=== PATIENT | female | born 1965 | race Hispanic/Latino ===

== ENCOUNTER 2017-09-08 16:23 | Emergency (ER) | payer BC, OTHER ==
[2017-09-08] MEDS ORDERED: KETOROLAC TROMETHAMINE 30MG/ML ONE (16:51)
[2017-09-08] MEDS ORDERED: CYCLOBENZAPRINE HCL 10 MG TABLET ONE (16:52)
== END 2017-09-08 20:10 | disposition home or self-care (01) ==
LOC: EDH 16:23
DX: M62.838 Other muscle spasm (principal); I10 Essential (primary) hypertension; Z87.891 Personal history of nicotine dependence
CPT/HCPCS: 96372; 99283; J1885

== ENCOUNTER 2017-09-09 14:13 | Emergency (ER) | payer BC ==
[2017-09-09] MEDS ORDERED: KETOROLAC TROMETHAMINE 60 MG/2 ML VIAL ONE (14:51)
[2017-09-09] MEDS ORDERED: DIAZEPAM 5 MG TABLET ONE (15:01)
== END 2017-09-09 16:14 | disposition home or self-care (01) ==
LOC: EDH 14:13
DX: G50.0 Trigeminal neuralgia (principal); M62.830 Muscle spasm of back; I10 Essential (primary) hypertension; Z98.890 Other specified postprocedural states
CPT/HCPCS: 96372; 99283; J1885

== ENCOUNTER → 2021-03-22 | Outpatient (CLI) | payer BC | END | disposition home or self-care (01) | LOC: RAH 11:11 | PROVIDERS: ATTEND Family Medicine | DX: J34.1 Cyst and mucocele of nose and nasal sinus (principal); R20.0 Anesthesia of skin | CPT/HCPCS: 70551 ==

== ENCOUNTER 2023-03-19 17:01 | Observation (INO) | payer OTHER ==
[~2023-03-19] VITALS: Ht 162.6 cm; Wt 99.3 kg
[2023-03-19 18:23] VITALS: BP 145/80; PULSE 87; RESP 20
[2023-03-19] MEDS ORDERED: CLOPIDOGREL 300MG TAB PO ONE (18:30)
[2023-03-19] MEDS ORDERED: LISI1TAB53 PO (18:34)
[2023-03-19] MEDS ORDERED: AMLO-257 PO (18:34)
[2023-03-19] MEDS ORDERED: OMEP-420 PO (18:34)
[2023-03-19] MEDS ORDERED: ASPI-1443 PO (18:34)
[2023-03-19 18:48] LABS: HEMATOCRIT 37.7 % (36-48); MEAN CORPUSCULAR HEMOGLOBIN 28.3 pg (27.0-33.0); MEAN CORPUSCULAR HGB CONC 33.4 g/dL (32.0-36.0); MEAN CORPUSCULAR VOLUME 84.5 fL (79-99); RED BLOOD CELL COUNT(AUTO) 4.46 MIL/uL (4.00-5.50); RED CELL DISTRIBUTION WIDTH 12.3 % (11.0-15.5); WHITE BLOOD COUNT (AUTO) 8.1 K/uL (4.8-10.8)
[2023-03-19 19:01] LABS: INR 0.93 (0.85-1.15); PROTHROMBIN TIME 10.6 SEC (9.6-11.6)
[2023-03-19 19:03] LABS: PARTIAL THROMBOPLASTIN TIME 24.8 SEC (26.3-35.5)
[2023-03-19 19:06] LABS: ALBUMIN 3.8 g/dL (3.5-5.0); BILIRUBIN,TOTAL 0.5 mg/dL (0.2-1.0); CREATININE 0.7 mg/dL (0.5-1.5); POTASSIUM 3.2 mmol/L (3.5-5.1); TOTAL PROTEIN, SERUM 7.7 g/dL (6.0-8.3)
[2023-03-19 20:00] VITALS: O2SAT 97
[2023-03-19] MEDS: FAMOTIDINE 20MG TAB PO SCH (20:30)
[2023-03-19] MEDS ORDERED: NITROGLYCERIN 1GM OINT 1 INCH/1GM TD ONE (20:50)
[2023-03-19 20:59] LABS: BASOPHILS # (AUTO) 0.07 K/uL (0.00-0.20); BASOPHILS % (AUTO) 0.8 % (0.0-5.0); EOSINOPHILS # (AUTO) 0.09 K/uL (0.00-0.70); HEMATOCRIT 37.1 % (36-48); IMMATURE GRANULOCYTE ABSOLUTE 0.04 K/uL (0-1); LYMPHOCYTES # (AUTO) 3.6 K/uL (1.0-4.8); LYMPHOCYTES % (AUTO) 40.6 % (21.0-51.0); MEAN CORPUSCULAR HEMOGLOBIN 28.3 pg (27.0-33.0); MEAN CORPUSCULAR HGB CONC 33.2 g/dL (32.0-36.0); MEAN CORPUSCULAR VOLUME 85.3 fL (79-99); MONOCYTES # (AUTO) 0.6 K/uL (0.1-1.0); MONOCYTES % (AUTO) 6.9 % (3.0-13.0); NEUTROPHILS # (AUTO) 4.5 K/uL (1.8-7.7); NEUTROPHILS % (AUTO) 50.3 % (40.0-77.0); PLATELET COUNT (AUTO) 232 K/uL (130-400); RED BLOOD CELL COUNT(AUTO) 4.35 MIL/uL (4.00-5.50); RED CELL DISTRIBUTION WIDTH 12.4 % (11.0-15.5); WHITE BLOOD COUNT (AUTO) 8.9 K/uL (4.8-10.8)
[2023-03-19] MEDS ORDERED: MORPHINE 4 MG SYG IM PRN (21:00)
[2023-03-19] MEDS ORDERED: AMLODIPINE 5 MG TAB PO SCH (21:00)
[2023-03-19] MEDS ORDERED: KCL 20 MEQ ERTAB PO PRN (21:00)
[2023-03-19] MEDS ORDERED: METOPROLOL TARTRATE 25 MG TAB PO ONE (21:00)
[2023-03-19] MEDS ORDERED: POTASSIUM CHLORIDE 20MEQ/100ML 100 ML IV PRN (21:00)
[2023-03-19] MEDS ORDERED: POTASSIUM CHLORIDE 10% ELIXIR 20 MEQ/15 ML UDCUP PO PRN (21:00)
[2023-03-19] MEDS ORDERED: MORPHINE 2 MG SYG IVP PRN (21:00)
[2023-03-19] MEDS ORDERED: MAGNESIUM 2GM PREMIX 50ML 50 ML IV PRN (21:00)
[2023-03-19] MEDS: NITROGLYCERIN 1GM OINT 1 INCH/1GM TD SCH (21:10)
[2023-03-19] MEDS ORDERED: LACTULOSE 20 GM/30 ML UDCUP PO PRN (21:30)
[2023-03-19] MEDS ORDERED: HEPARIN 5,000 UNIT VIAL SQ PRN (21:30)
[2023-03-19] MEDS: HEPARIN 25,000 UNITS/250ML D5W 250 ML IV SCH (22:00)
[2023-03-19 22:26] LABS: APPEARANCE,URINE CLEAR (CLEAR); BILIRUBIN,URINE NEGATIVE (NEGATIVE); COLOR,URINE LIGHT-YELLOW (YELLOW); GLUCOSE, URINE (UA) NEGATIVE (NEGATIVE); KETONES,URINE NEGATIVE (NEGATIVE); LEUKOCYTE ESTERASE ,URINE NEGATIVE Leu/uL (NEGATIVE); NITRATE,URINE NEGATIVE (NEGATIVE); PH,URINE 5.5 (5.0-8.0); PROTEIN,URINE NEGATIVE (NEGATIVE); UROBILINOGEN,URINE 0.2 mg/dL (0.2-1.0)
[2023-03-19 22:36] LABS: BACTERIA,URINE FEW /HPF (None Seen); MUCUS,URINE FEW LPF (None Seen); SQUAMOUS EPITHELIAL CELL,UR RARE /HPF (0-2)
[2023-03-19 23:54] VITALS: BP 110/70; PULSE 53; RESP 18
[2023-03-20] VITALS (15 sets, daily range): BP systolic 104–122; BP diastolic 51–73; PULSE 43–66; RESP 16–18; O2SAT 98
[2023-03-20] MEDS ORDERED: LACTATED RINGERS 1000ML 1,000 ML IV SCH (00:30)
[2023-03-20 03:47] LABS: BASOPHILS # (AUTO) 0.04 K/uL (0.00-0.20); BASOPHILS % (AUTO) 0.5 % (0.0-5.0); EOSINOPHILS # (AUTO) 0.14 K/uL (0.00-0.70); EOSINOPHILS % (AUTO) 1.7 % (0.0-8.0); HEMATOCRIT 35.1 % (36-48); IMMATURE GRANULOCYTE ABSOLUTE 0.02 K/uL (0-1); LYMPHOCYTES # (AUTO) 4.4 K/uL (1.0-4.8); LYMPHOCYTES % (AUTO) 54.8 % (21.0-51.0); MEAN CORPUSCULAR HEMOGLOBIN 28.1 pg (27.0-33.0); MEAN CORPUSCULAR HGB CONC 33.3 g/dL (32.0-36.0); MEAN CORPUSCULAR VOLUME 84.4 fL (79-99); MONOCYTES # (AUTO) 0.5 K/uL (0.1-1.0); MONOCYTES % (AUTO) 6.7 % (3.0-13.0); NEUTROPHILS # (AUTO) 2.9 K/uL (1.8-7.7); NEUTROPHILS % (AUTO) 36.1 % (40.0-77.0); PLATELET COUNT (AUTO) 221 K/uL (130-400); RED BLOOD CELL COUNT(AUTO) 4.16 MIL/uL (4.00-5.50); RED CELL DISTRIBUTION WIDTH 12.5 % (11.0-15.5); WHITE BLOOD COUNT (AUTO) 8.1 K/uL (4.8-10.8)
[2023-03-20 04:04] LABS: THYROID STIMULATING HORMONE 3.32 uIU/mL (0.36-3.74)
[2023-03-20] MEDS: NITROGLYCERIN 1GM OINT 1 INCH/1GM TD SCH ×2 (05:45→13:00)
[2023-03-20] MEDS: FAMOTIDINE 20MG TAB PO SCH (07:29)
[2023-03-20] MEDS ORDERED: CLOPIDOGREL 75MG TAB PO SCH (09:00)
[2023-03-20] MEDS ORDERED: LISINOPRIL 20 MG TABLET PO SCH (09:00)
[2023-03-20] MEDS ORDERED: ASPIRIN 81MG CHEW TAB PO SCH (09:00)
[2023-03-20] MEDS ORDERED: HYDROCHLOROTHIAZIDE 25 MG TABLET PO SCH (09:00)
[2023-03-20] MEDS: HEPARIN 25,000 UNITS/250ML D5W 250 ML IV SCH ×2 (09:30→15:30)
[2023-03-20] MEDS ORDERED: BIVALIRUDIN 250 MG/VIAL IV ONE (12:57)
[2023-03-20] MEDS ORDERED: LIDOCAINE HCL 400MG/20ML VIAL ONE (12:57)
[2023-03-20] MEDS ORDERED: NITROGLYCERIN 50MG VIAL ONE (12:58)
[2023-03-20] MEDS ORDERED: FENTANYL CITRATE PF 50 MCG/1 ML 2ML VIAL ONE (14:10)
[2023-03-20] MEDS ORDERED: MIDAZOLAM HCL 1 MG/ML 2ML VIAL ONE (14:11)
[2023-03-20] MEDS ORDERED: LISI20TA24 PO (14:57)
[2023-03-20] MEDS ORDERED: 0.9%NACL 1000ML 1,000 ML IV SCH (15:00)
[2023-03-20] MEDS ORDERED: IOPAMIDOL-370 100 ML VIAL IV ONE (20:29)
[2023-03-20] MEDS ORDERED: ISOVUE-370 50ML VIAL IV ONE (20:29)
== END 2023-03-20 20:30 | disposition home or self-care (01) ==
LOC: 2AH 17:33
PROVIDERS: ADMIT Internal Medicine; ATTEND Internal Medicine
DX: I20.0 Unstable angina (principal); I10 Essential (primary) hypertension; E66.01 Morbid (severe) obesity due to excess calories; Z51.5 Encounter for palliative care; Z79.02 Long term (current) use of antithrombotics/antiplatelets; Z79.82 Long term (current) use of aspirin; Z79.899 Other long term (current) drug therapy
CPT/HCPCS: 96372; 96365; 96366 ×2; 96375; 84484 ×3; 80061 ×2; 80053; 85025 ×2; 85027; 85610; 85730 ×3; 81001; 36415 ×2; 93005; 93458; 84443; G0378 ×23; G0379; J2270; J1644 ×3; C1894 ×2; C1760; Q9967 ×2; J3010; J3490 ×2; J2250; 99156; 99157; J0583